=== PATIENT | female | born 1970 | race Caucasian/White ===

== ENCOUNTER 2017-04-25 06:45 | Day surgery (SDC) | payer OTHER ==
[~2017-04-25] VITALS: Ht 160 cm; Wt 111.1 kg
[2017-04-25] MEDS ORDERED: SILVER NITRATE APPLICATOR 1 STICK STICK..EA. TP ONE (08:50)
[2017-04-25] MEDS ORDERED: SEVOFLURANE 15 MIN GAS INH ONE (08:50)
[2017-04-25] MEDS ORDERED: LR 1,000 ML IV.SOLN IV ONE (08:50)
[2017-04-25] MEDS ORDERED: PROPOFOL 200MG/ 20ML VIAL (DIPRIVAN) IV ONE (08:50)
[2017-04-25] MEDS ORDERED: fentaNYL CITRATE/PF 100 MCG/2 ML AMP IVP ONE (08:50)
[2017-04-25] MEDS ORDERED: MIDAZOLAM HCL 5 MG/5 ML VIAL IVP ONE (08:50)
[2017-04-25] MEDS ORDERED: ONDANSETRON HCL 4 MG/2 ML VIAL IVP PRN ×2 (09:00→09:45)
[2017-04-25] MEDS ORDERED: fentaNYL CITRATE/PF 100 MCG/2 ML AMP IVP PRN ×2 (09:00)
[2017-04-25] MEDS ORDERED: IBUPROFEN 800 MG TABLET PO PRN (09:45)
[2017-04-25] MEDS ORDERED: OXYCODONE/ACETAMINOPHEN 5-325 TABLET PO PRN ×2 (09:45)
[2017-04-25] MEDS ORDERED: OXYCODONE/ACETAMINOPHEN 5-325 TABLET ONE (10:39)
[2017-04-25 10:50] VITALS: BP_SYST 121
== END 2017-04-25 12:05 | disposition home or self-care (01) ==
LOC: SDS 06:45 → SMU 06:45 → SDS 12:05
PROVIDERS: ATTEND Obstetrics & Gynecology
DX: N85.01 Benign endometrial hyperplasia (principal); Z68.41 Body mass index [BMI] 40.0-44.9, adult; D64.9 Anemia, unspecified; E55.9 Vitamin D deficiency, unspecified; E66.9 Obesity, unspecified
CPT/HCPCS: 36415; 58558; 86886; 86900; 86901; 88305; J2250; J2704; J3010; J7120

== ENCOUNTER 2017-12-12 19:24 | Inpatient (IN) | payer OTHER ==
[~2017-12-12] VITALS: Ht 157.5 cm; Wt 106.6 kg
[2017-12-12 19:40] VITALS: BP_SYST 124
[2017-12-12] MEDS ORDERED: NACL 0.9% 1,000 ML IV ONE (20:00)
[2017-12-12 20:26] LABS: BASOPHILS % (AUTO) 0.3 % (0.0-2.0); EOSINOPHILS # (AUTO) 0.1 K/uL (0.0-0.4); EOSINOPHILS % (AUTO) 1.9 % (0.0-4.0); HEMATOCRIT 24.2 % (36-48); HEMOGLOBIN 7.3 g/dL (12.0-16.0); LYMPHOCYTES # (AUTO) 1.7 K/uL (1.0-5.5); MEAN CORPUSCULAR HEMOGLOBIN 25 pg (27-31); MEAN CORPUSCULAR HGB CONC 30 % (32-36); MEAN CORPUSCULAR VOLUME 83 fL (79.0-98.0); MONOCYTES # (AUTO) 0.6 K/uL (0.0-1.0); MONOCYTES % (AUTO) 8.1 % (1.7-9.3); NEUTROPHILS # (AUTO) 4.6 K/uL (1.8-7.7); NEUTROPHILS % (AUTO) 65.7 % (40.0-70.0); PLATELET COUNT (AUTO) 373 K/uL (130-430); RED CELL DISTRIBUTION WIDTH 14.2 % (9.0-15.0)
[2017-12-12 20:40] LABS: CALCIUM 8.1 mg/dL (8.4-11.0); CREATININE 0.73 mg/dL (0.55-1.30); POTASSIUM 3.5 mmol/L (3.5-5.1)
[2017-12-12 20:46] LABS: ALBUMIN 3.6 g/dL (3.4-4.8); INR 1.1 (0.8-1.2); PROTHROMBIN TIME 10.8 SECS (9.5-12.5); TOTAL BILIRUBIN 0.3 mg/dL (0.0-1.0)
[2017-12-12] MEDS: D5LR 1,000 ML IV SCH (23:45)
[2017-12-13] VITALS (9 sets, daily range): BP systolic 123–141
[2017-12-13] MEDS ORDERED: PROV10 PO (00:39)
[2017-12-13] MEDS: D5LR 1,000 ML IV SCH (08:35)
[2017-12-13 09:08] LABS: EOSINOPHILS # (AUTO) 0.2 K/uL (0.0-0.4); MEAN CORPUSCULAR VOLUME 85 fL (79.0-98.0); MONOCYTES # (AUTO) 0.4 K/uL (0.0-1.0); NEUTROPHILS # (AUTO) 3.3 K/uL (1.8-7.7)
[2017-12-13 09:16] LABS: BASOPHILS % (AUTO) 0.3 % (0.0-2.0); EOSINOPHILS % (AUTO) 3.2 % (0.0-4.0); HEMATOCRIT 29.1 % (36-48); HEMOGLOBIN 9.2 g/dL (12.0-16.0); LYMPHOCYTES # (AUTO) 1.5 K/uL (1.0-5.5); LYMPHOCYTES % (AUTO) 27.6 % (20.5-51.5); MEAN CORPUSCULAR HEMOGLOBIN 27 pg (27-31); MEAN CORPUSCULAR HGB CONC 32 % (32-36); MONOCYTES % (AUTO) 7.2 % (1.7-9.3); NEUTROPHILS % (AUTO) 61.7 % (40.0-70.0); PLATELET COUNT (AUTO) 290 K/uL (130-430); RED BLOOD CELL COUNT(AUTO) 3.43 MIL/uL (4.2-6.2); RED CELL DISTRIBUTION WIDTH 13.9 % (9.0-15.0); WHITE BLOOD COUNT (AUTO) 5.4 K/uL (4.8-10.8)
== END 2017-12-13 13:30 | disposition home or self-care (01) | DRG 812 ==
LOC: SED 19:24 → SMU 23:35
PROVIDERS: ADMIT Specialist; ATTEND Specialist
PROC: 30233N1 Transfusion of Nonautologous Red Blood Cells into Peripheral Vein, Percutaneous Approach (ICD-10-PCS; principal; 2017-12-12)
DX: D64.9 Anemia, unspecified (principal); N93.8 Other specified abnormal uterine and vaginal bleeding
CPT/HCPCS: 36415; 76830-TC; 76857; 80053; 84702-TC; 85025; 85610-TC; 85730-TC; 86886; 86900; 86901; 86920; 96360; 99285; J7030; J7040; J7120; P9021

== ENCOUNTER 2018-01-09 05:44 | Outpatient (CLI) | payer OTHER ==
[~2018-01-09] VITALS: Ht 160 cm; Wt 106.1 kg
[~2018-01-09 05:44] MED LIST: PROV10 PO
[2018-01-09] MEDS ORDERED: CEFAZOLIN 1 GM IVPB PREMIX 50 ML IV ONE (06:43)
[2018-01-09 06:48] VITALS: BP_SYST 137
[2018-01-09] MEDS ORDERED: CEFAZOLIN SOD 1 GM/ ISO 50 ML PREMIX IV ONE (07:45)
== END 2018-01-09 12:00 | disposition home or self-care (01) ==
LOC: SMU 05:44 → SLB 05:44 → UNDOADMIN 05:44 → EDSTATUS 07:30 → UNDODISIN 07:33 → SLB 12:00
PROVIDERS: ATTEND Obstetrics & Gynecology
DX: Z01.812 Encounter for preprocedural laboratory examination (principal); D25.9 Leiomyoma of uterus, unspecified; N85.01 Benign endometrial hyperplasia
CPT/HCPCS: 36415; 86886; 86900; 86901; 87081; J0690; J7120

== ENCOUNTER 2019-06-04 05:45 | Inpatient (IN) | payer OTHER ==
[2019-06-01 09:58] LABS: BASOPHILS % (AUTO) 0.4 % (0.0-2.0); EOSINOPHILS # (AUTO) 0.3 K/uL (0.0-0.4); HEMATOCRIT 41.5 % (36-48); HEMOGLOBIN 13.9 g/dL (12.0-16.0); LYMPHOCYTES # (AUTO) 1.6 K/uL (1.0-5.5); LYMPHOCYTES % (AUTO) 24.9 % (20.5-51.5); MEAN CORPUSCULAR HEMOGLOBIN 31 pg (27-31); MEAN CORPUSCULAR HGB CONC 33 % (32-36); MEAN CORPUSCULAR VOLUME 93 fL (79.0-98.0); MONOCYTES # (AUTO) 0.5 K/uL (0.0-1.0); MONOCYTES % (AUTO) 6.8 % (1.7-9.3); NEUTROPHILS # (AUTO) 4.2 K/uL (1.8-7.7); NEUTROPHILS % (AUTO) 63.9 % (40.0-70.0); PLATELET COUNT (AUTO) 233 K/uL (130-430); RED BLOOD CELL COUNT(AUTO) 4.49 MIL/uL (4.2-6.2); RED CELL DISTRIBUTION WIDTH 13.2 % (9.0-15.0); WHITE BLOOD COUNT (AUTO) 6.6 K/uL (4.8-10.8)
[2019-06-01 09:59] LABS: BILIRUBIN,URINE NEGATIVE (NEGATIVE); CLARITY/URINE CLEAR (CLEAR); COLOR,URINE YELLOW (YELLOW); GLUCOSE,URINE NEGATIVE (NEGATIVE); KETONES,URINE NEGATIVE (NEGATIVE); LEUKOCYTE ESTERASE ,URINE NEGATIVE (NEGATIVE); NITRITE, URINE NEGATIVE (NEGATIVE); PROTEIN URINE NEGATIVE (NEGATIVE); UROBILINOGEN,URINE 0.2 (0.2-1.0)
[2019-06-01 10:02] LABS: BLOOD, URINE TRACE (NEGATIVE)
[2019-06-01 10:14] LABS: CALCIUM 8.7 mg/dL (8.4-11.0); CREATININE 0.67 mg/dL (0.55-1.30); POTASSIUM 3.7 mmol/L (3.5-5.1)
[2019-06-01 10:15] LABS: HCG,QUAL RESULT NEGATIVE (NEGATIVE)
[2019-06-01 10:26] LABS: RBC,URINE 0-3 /HPF (0-3); WBC,URINE 0-3 /HPF (0-3)
[2019-06-01 10:27] LABS: BACTERIA,URINE FEW /HPF (None Seen); MUCUS,URINE 1+ /LPF (None Seen)
[~2019-06-04] VITALS: Ht 162.6 cm; Wt 112.0 kg
[2019-06-04] MEDS ORDERED: CEFAZOLIN SOD 1 GM in D5W 50 ML IV ONE (07:00)
[2019-06-04] MEDS ORDERED: ROCURONIUM BROMIDE 10 MG/ML (ZEMURON) IV ONE (07:30)
[2019-06-04] MEDS ORDERED: MIDAZOLAM HCL 5 MG/5 ML VIAL IVP ONE (07:30)
[2019-06-04] MEDS ORDERED: SEVOFLURANE 15 MIN GAS INH ONE (07:30)
[2019-06-04] MEDS ORDERED: PROPOFOL 200MG/ 20ML VIAL (DIPRIVAN) IV ONE (07:30)
[2019-06-04] MEDS ORDERED: GLYCOPYRROLATE 0.2 MG/ML VIAL IJ ONE (07:30)
[2019-06-04] MEDS ORDERED: BUPIVACAINE /DEX PF 0.75% SPINAL 2 ML AMP INJ ONE (07:30)
[2019-06-04] MEDS ORDERED: fentaNYL CITRATE 250 MCG/5 ML AMP IV ONE (07:30)
[2019-06-04] MEDS ORDERED: ONDANSETRON HCL 4 MG/2 ML VIAL IVP ONE (07:30)
[2019-06-04] MEDS ORDERED: NEOSTIGMINE METHYLSULFATE 1 MG/ML, 10 ML VIAL IVP ONE (07:30)
[2019-06-04] MEDS ORDERED: LR 1,000 ML IV.SOLN IV ONE (07:30)
[2019-06-04] MEDS ORDERED: NS IRRIG SOLN 1000 ML IR ONE (07:30)
[2019-06-04] MEDS ORDERED: ONDANSETRON HCL 4 MG/2 ML VIAL IVP PRN ×2 (08:30→10:00)
[2019-06-04] MEDS ORDERED: fentaNYL CITRATE/PF 100 MCG/2 ML AMP IVP PRN (08:30)
[2019-06-04] MEDS ORDERED: BUPIVACAINE LIPOSOME/PF 266 MG/20 ML VIAL INFIL ONE (08:45)
[2019-06-04] MEDS ORDERED: LR 1,000 ML IV SCH (09:51)
[2019-06-04] MEDS ORDERED: OXYCODONE/ACETAMINOPHEN 5-325 TABLET PO PRN ×3 (10:00→15:00)
[2019-06-04 10:05] VITALS: BP_SYST 140
[2019-06-04] MEDS: fentaNYL CITRATE/PF 100 MCG/2 ML AMP IVP PRN ×2 (10:19→10:31)
[2019-06-04] MEDS ORDERED: fentaNYL CITRATE/PF 100 MCG/2 ML AMP ONE (10:33)
[2019-06-04] MEDS ORDERED: MEPERIDINE HCL/PF 50 MG/ML AMP IM PRN (11:30)
[2019-06-04] MEDS ORDERED: MEPERIDINE HCL/PF 50 MG/ML AMP ONE (11:56)
[2019-06-04] MEDS ORDERED: OXYCODONE/ACETAMINOPHEN *10*mg/325 mg TABLET ONE (17:47)
[2019-06-04] MEDS ORDERED: SENNOSIDES/DOCUSATE SODIUM 1 TAB TABLET(SENOKOT-S) PO PRN ×2 (21:00)
[2019-06-04] MEDS ORDERED: TEMAZEPAM 15 MG CAPSULE PO PRN (21:00)
[2019-06-05] MEDS: IBUPROFEN 800 MG TABLET PO PRN ×3 (05:51→23:46)
[2019-06-05] MEDS: SIMETHICONE 80 MG TAB.CHEW PO PRN ×4 (06:40→23:46)
[2019-06-05 07:21] LABS: HEMATOCRIT 38.6 % (36-48); HEMOGLOBIN 13.1 g/dL (12.0-16.0)
[2019-06-06] MEDS: IBUPROFEN 800 MG TABLET PO PRN ×2 (06:28→12:09)
== END 2019-06-06 13:00 | disposition home or self-care (01) | DRG 742 ==
LOC: SMU 05:45 → SPU 11:16
PROVIDERS: ADMIT Obstetrics & Gynecology; ATTEND Obstetrics & Gynecology
PROC: 0UT70ZZ Resection of Bilateral Fallopian Tubes, Open Approach (ICD-10-PCS; 2019-06-04)
PROC: 0UT90ZZ Resection of Uterus, Open Approach (ICD-10-PCS; principal; 2019-06-04 07:30)
DX: D25.9 Leiomyoma of uterus, unspecified (principal); Z68.41 Body mass index [BMI] 40.0-44.9, adult; F41.9 Anxiety disorder, unspecified; E66.01 Morbid (severe) obesity due to excess calories; Z82.49 Family history of ischemic heart disease and other diseases of the circulatory system; Z83.3 Family history of diabetes mellitus; Z84.89 Family history of other specified conditions; Z80.8 Family history of malignant neoplasm of other organs or systems
CPT/HCPCS: 36415; 80048; 81000-TC; 84703; 85018-TC; 85025; 86886; 86900; 86901; 87081; 88307; C9290; J0690; J2175; J2250; J2405; J2704; J2710; J3010; J3490; J7060; J7120